=== PATIENT | female | born 1965 | race Caucasian/White ===

== ENCOUNTER 2018-02-20 03:36 | Observation (INO) ==
[2018-02-20] MEDS ORDERED: 0.9 % Sodium Chloride 500 ML IVC ONE (03:57)
[2018-02-20] MEDS ORDERED: Aspirin 325 MG TABLET PO ONE (03:58)
[2018-02-20 04:16] LABS: Basophils % 0.1 %; Eosinophils % 0.1 %; Hematocrit 38.3 % (35.3-44.9); Hemoglobin 12.8 g/dL (11.5-15.4); Immature Granulocytes % 0.5 % (0-4); Lymphocytes % 17.9 %; Mean Corpuscular HGB Conc 33.4 g/dL (31.6-35.5); Mean Corpuscular Hemoglobin 29.3 pg (28.0-33.3); Mean Corpuscular Volume 87.6 fL (83.0-100.0); Mean Platelet Volume 9.9 fL (9.4-12.4); Monocytes # 0.5 K/mcL (0.0-1.3); Monocytes % 4.8 %; Neutrophils # 8.5 K/mcL (1.6-8.9); Platelet Count 198 K/mcL (140-400); Red Blood Count 4.37 M/mcL (3.82-4.97); Segmented Neutrophils % 76.6 %
[2018-02-20] MEDS: Nitroglycerin 0.4 MG TAB.SUBL SL PRN ×2 (04:19→21:28)
[2018-02-20 04:21] LABS: Prothrombin Time 11.8 Seconds (9.4-12.1)
[2018-02-20 04:23] LABS: Activated Partial Thrombo Time 27.9 Seconds (26.0-36.0)
[2018-02-20 04:36] LABS: BUN/Creatinine Ratio 25 (6-26); Blood Urea Nitrogen 15 mg/dL (6-20); Calcium 9.3 mg/dL (8.6-10.3); Carbon Dioxide 23 mEq/L (23-29); Chloride 110 mEq/L (98-107); Glucose 129 mg/dL (70-105); Osmolality,Calculated 283 (280-300); Potassium 4.1 mEq/L (3.5-5.1); Sodium 135 mEq/L (136-145); eGFR For Non-African Americans > 60 (> 60)
[2018-02-20 04:37] LABS: Troponin I < 0.03 ng/mL (< 0.04)
[2018-02-20] MEDS ORDERED: clonazePAM 0.5 MG TABLET PO STA ×2 (04:56→05:17)
--- NOTE | 2018-02-20 04:59 | Emergency Department Note ---
Disposition Clinical Impression: Acute electrocardiogram changes Chest pain Qualifiers: Chest pain type: unspecified Qualified Code(s): R07.9 - Chest pain, unspecified Disposition: Admitted As Inpatient Condition: Good Chest Pain HPI - General Chief Complaint: ED Chest Pain Stated Complaint: chest tightness Time Seen by Provider: 02/20/18 03:42 Source: patient, EMS Limitations: no limitations Vital Signs Reviewed: Yes Nursing Notes Reviewed: Yes - History of Present Illness HPI Narrative: Patient presents today for evaluation of chest pain. Chest pain on the left side describes pressure. Patient states that she has recently been evaluated for lupus as well as thyroid problems. Patient is scheduled to have a stress test tomorrow at [facility]. Patient states that she was concerned about her chest pain and having a heart attack prior to having her evaluation there. She presented here due to its proximity. She has associated nausea. Pain was worse with exertion. Patient will be given aspirin as well as nitroglycerin. High concern for ACS. Patient will likely need admission. Patient states that if possible she would like to go to [facility] for admission. Severity scale (1-10): 5 - Related Data Home Medications Medication Instructions Recorded Confirmed Aspirin [Lo-Dose Aspirin EC] 81 mg PO DAILY 02/20/18 02/20/18 Atorvastatin [Lipitor] 20 mg PO HS 02/20/18 02/20/18 Docusate Sodium [Dulcolax Stool 100 mg PO HS 02/20/18 02/20/18 Softener] Lisinopril [Zestril] 10 mg PO DAILY 02/20/18 02/20/18 Mirtazapine [Remeron] 7.5 - 15 mg PO HS 02/20/18 02/20/18 Promethazine HCl 25 mg PO HS 02/20/18 02/20/18 clonazePAM [Klonopin] 1 mg PO BID MDD .morning and 02/20/18 02/20/18 afternoon clonazePAM [Klonopin] 1 mg PO HS 02/20/18 02/20/18 predniSONE [PredniSONE] 20 mg PO DAILY 02/20/18 02/20/18 Allergies Allergy/AdvReac Type Severity Reaction Status Date / Time antihistamines AdvReac See Uncoded 09/04/17 14:33 Comments Review of Systems: As Per HPI Constitutional: Denies: fever, chills Cardiovascular: Reports: chest pain Respiratory: Denies: cough, dyspnea Gastrointestinal: Reports: nausea Genitourinary: Denies: urgency, dysuria Musculoskeletal: Denies: back pain Neurological: Denies: headache Psychiatric: Reports: anxiety Chest Pain PMH - Past Medical History Medical history: Reports: glaucoma, thyroid disease, other Psychiatric history: Reports: anxiety, PTSD, other - Social History Smoking Status: Current every day smoker Alcohol use: Reports: none Drug use: Reports: marijuana, prescription drug abuse Physical Exam General: Patient mildly anxious Head: Normocephalic Atraumatic Eyes: PERRL, EOMI ENT: Airway patent, no stridor Neck: supple, no meningismus Chest: Lungs clear to auscultation bilateral Cardiac: Regular rate and rhythm, no murmurs, rubs or gallops Abdomen: soft, nontender, nondistended; no guarding, rebound, or tenderness to percussion Skin: No rash, normal skin tone Neuro: Alert and Oriented to person, place, and time; No focal deficit, - General Limitations: no limitations General appearance: alert, in no apparent distress Course Course Narrative: Troponin is negative. Patient has EKG changes. We will discuss with Chel for possible transfer. If unable, patient will be admitted here. - Reevaluation(s) Reevaluation #1: Patient complaining of GI bleeding. States that she has had this and his thought it might be secondary to hemorrhoids. At this time the patient has EKG changes but her troponin is negative. We will hold off on anticoagulation. Stool guaiac has been sent. Not grossly positive. - Consultations Consultation #1: Discussed with Chel. They do not have a Manager [facility]. Patient will require transfer if she ruled in. I have discussed this with the patient and she states that she is agreeable to stay at [facility] for further cardiac evaluation. Consultation #2: Discussed with hospitalist. Patient accepted for admission. Agrees with holding heparin until stool guaiac back and further troponin testing and observation has occurred. Vital Signs Temperature 98.8 F 02/20/18 03:46 Pulse Rate 63 02/20/18 03:46 Respiratory Rate 18 02/20/18 03:46 Blood Pressure 140/80 02/20/18 03:46 O2 Sat by Pulse Oximetry 99 02/20/18 03:46 Temperature 97.9 F 02/20/18 06:47 Pulse Rate 56 02/20/18 06:47 Respiratory Rate 18 02/20/18 06:47 Blood Pressure 155/85 02/20/18 06:47 O2 Sat by Pulse Oximetry 99 02/20/18 06:47 Oxygen Delivery Oxygen Delivery Room Air Chest Pain - Medical Records Medical records reviewed: Yes I reviewed the patient's medical records. - Lab Data Lab results reviewed: Yes I reviewed the patient's lab results. Result diagrams: 02/20/18 04:05 02/20/18 04:05 Lab Results 02/20/18 02/20/18 02/20/18 Range/Units 04:05 04:05 04:05 WBC 11.1 (4.3-11.1) K/mcL RBC 4.37 (3.82-4.97) M/mcL Hgb 12.8 (11.5-15.4) g/dL Hct 38.3 (35.3-44.9) % MCV 87.6 (83.0-100.0) fL MCH 29.3 (28.0-33.3) pg MCHC 33.4 (31.6-35.5) g/dL RDW 13.0 (11.5-14.5) % Plt Count 198 (140-400) K/mcL MPV 9.9 (9.4-12.4) fL Immature Gran % 0.5 (0-4) % Seg Neutrophils % 76.6 % Lymphocytes % 17.9 % Monocytes % 4.8 % Eosinophils % 0.1 % Basophils % 0.1 % Neutrophils # 8.5 (1.6-8.9) K/mcL Lymphocytes # 2.0 (0.6-4.6) K/mcL Monocytes # 0.5 (0.0-1.3) K/mcL Eosinophils # 0.0 (0.0-0.6) K/mcL Basophils # 0.0 (0.0-0.2) K/mcL PT 11.8 (9.4-12.1) Seconds INR 1.0 APTT 27.9 (26.0-36.0) Seconds D-Dimer 387 (0-500) ng/mLFEU Sodium 135 L (136-145) mEq/L Potassium 4.1 (3.5-5.1) mEq/L Chloride 110 H (98-107) mEq/L Carbon Dioxide 23 (23-29) mEq/L BUN 15 (6-20) mg/dL Creatinine 0.59 L (0.60-1.20) mg/dL Est GFR ( Amer) > 60 (> 60) Est GFR (Non-Af Amer) > 60 (> 60) BUN/Creatinine Ratio 25 (6-26) Glucose 129 H (70-105) mg/dL Calculated Osmolality 283 (280-300) Calcium 9.3 (8.6-10.3) mg/dL Troponin I < 0.03 (< 0.04) ng/mL Stool Occult Bld Scrn (Negative) 02/20/18 Range/Units 05:40 WBC (4.3-11.1) K/mcL RBC (3.82-4.97) M/mcL Hgb (11.5-15.4) g/dL Hct (35.3-44.9) % MCV (83.0-100.0) fL MCH (28.0-33.3) pg MCHC (31.6-35.5) g/dL RDW (11.5-14.5) % Plt Count (140-400) K/mcL MPV (9.4-12.4) fL Immature Gran % (0-4) % Seg Neutrophils % % Lymphocytes % % Monocytes % % Eosinophils % % Basophils % % Neutrophils # (1.6-8.9) K/mcL Lymphocytes # (0.6-4.6) K/mcL Monocytes # (0.0-1.3) K/mcL Eosinophils # (0.0-0.6) K/mcL Basophils # (0.0-0.2) K/mcL PT (9.4-12.1) Seconds INR APTT (26.0-36.0) Seconds D-Dimer (0-500) ng/mLFEU Sodium (136-145) mEq/L Potassium (3.5-5.1) mEq/L Chloride (98-107) mEq/L Carbon Dioxide (23-29) mEq/L BUN (6-20) mg/dL Creatinine (0.60-1.20) mg/dL Est GFR ( Amer) (> 60) Est GFR (Non-Af Amer) (> 60) BUN/Creatinine Ratio (6-26) Glucose (70-105) mg/dL Calculated Osmolality (280-300) Calcium (8.6-10.3) mg/dL Troponin I (< 0.04) ng/mL Stool Occult Bld Scrn Negative (Negative) - Radiology Data Radiology results reviewed: Yes I reviewed the patient's radiology results. - EKG Data EKG attestation: Yes I reviewed and interpreted this EKG. EKG results narrative: EKG shows sinus rhythm with heart rate 62. AK 144. QRS 139. QTC 448. Patient has T-wave inversion in V1, V2, V3. No significant elevations. The 78 and T9 were also evaluated and did not show abnormalities.
[2018-02-20] MEDS ORDERED: Nitroglycerin 1 INCH/GM PACKET TP ONE ×2 (05:28→06:30)
[2018-02-20] MEDS ORDERED: Naloxone 0.4 MG/ML INJ IVP PRN (07:45)
[2018-02-20] MEDS ORDERED: *HR* OxyCODONE/APAP 5/325 TABLET PO PRN (08:35)
[2018-02-20] MEDS ORDERED: Acetaminophen 325 MG TABLET PO PRN (08:35)
[2018-02-20] MEDS ORDERED: OXYCODONE Oral CONC 10 MG/0.5 ML ORAL.SYG SL PRN (08:35)
[2018-02-20] MEDS ORDERED: clonazePAM 0.5 MG TABLET PO SCH (09:00)
--- NOTE | 2018-02-20 09:05 | Internal Med History&Physical ---
Date of Encounter: 02/20/18 Time of Encounter: 08:30 Internal Medicine - H&P: HPI Chief complaint: Chest pain Admitted From: Emergency Dept Plans for Post Hospital Care: Home History of present illness: Ms. Bucio is a 52 year old female patient with history of lupus, peripheral arterial disease, intermittent claudication, history of tobacco abuse, hypothyroidism who presented to the ER with complaints of chest pain. She reports that the chest pain has been going on for a while and she was scheduled for an echocardiogram and stress test to be done today. However as her chest pain continued to get worse she decided to come to the ER. She describes the pain as intense pressure on the left side of her chest. It does not get worse with activity but does get worse when she is resting. She has not been on medications for lupus for several months now. She denies any fevers or chills. No palpitations. She does report that she has had GI bleeding in the past. She has not had any colonoscopy recently. Her chest pain did not improve with Aspirin and nitroglycerin that she received in the ER. Past Med Surg Social Fam HX - Past Medical History Attestation: Yes The following information was validated with the patient. Source: patient Medical history: GI bleed, glaucoma, peripheral artery disease, thyroid disease , other (Lupus) Additional medical history: lupus Psychiatric history: anxiety, PTSD, other - Past Surgical History Additional surgical history: 5 D&C - Social History Smoking Status: Current every day smoker Smokeless Tobacco Status: No Alcohol use: none Drug use: marijuana, prescription drug abuse - Family History Father Living Status: Age at : 52 Cause of : CHF Hx Family Cardiac Disorders: Yes Mother Living Status: Age at : 62 Cause of : lung cancer Hx Family Cancer: Yes Grandmother Living Status: Hx Family Cardiac Disorders: Yes Internal Medicine - H&P: Meds Aspirin [Lo-Dose Aspirin EC] 81 mg PO DAILY 02/20/18 [History] Atorvastatin [Lipitor] 20 mg PO HS 02/20/18 [History] Docusate Sodium [Dulcolax Stool Softener] 100 mg PO HS 02/20/18 [History] Lisinopril [Zestril] 10 mg PO DAILY 02/20/18 [History] Mirtazapine [Remeron] 7.5 - 15 mg PO HS 02/20/18 [History] Promethazine HCl 25 mg PO HS 02/20/18 [History] clonazePAM [Klonopin] 1 mg PO BID MDD .morning and afternoon 02/20/18 [History] clonazePAM [Klonopin] 1 mg PO HS 02/20/18 [History] predniSONE [PredniSONE] 20 mg PO DAILY 02/20/18 [History] 3 Allergy/AdvReac Type Severity Reaction Status Date / Time antihistamines AdvReac See Uncoded 09/04/17 14:33 Comments All Systems PM: A 10-system review of systems was performed and is negative for pertinent findings except as documented above in the HPI. - Constitutional Constitutional: no chills, no fever(s), no night sweats - EENT Eyes: no change in vision, no discharge, no pain, no photophobia Ears: no ear discharge, no ear pain, no tinnitus Nose, mouth and throat: no dysphagia, no nasal discharge, no neck pain, no sore throat - Cardiovascular Cardiovascular ROS IM: chest pain, no diaphoresis, no dyspnea, no lightheadedness, no palpitations, no syncope - Respiratory Respiratory: cough, no dyspnea, no wheezing, no excessive phlegm production - Gastrointestinal Gastrointestinal: no abdominal pain, no diarrhea, no hematemesis, no hematochezia, no melena, no nausea, no vomiting - Genitourinary Genitourinary: no change in urinary stream, no dysuria, no flank pain, no hematuria - Musculoskeletal Musculoskeletal ROS IM: no numbness, no tingling - Integumentary Integumentary IM: no rash, no unusual bruising - Neurological Neurological ROS: no confusion, no convulsions, no focal weakness, no numbness, no tingling, no tremor(s) - Hematologic/Lymphatic Hematologic/Lymphatic: no easy bruising - Constitutional Vitals: Temp Pulse Resp BP Pulse Ox 97.9 F 56 18 155/85 99 02/20/18 06:47 02/20/18 06:47 02/20/18 06:47 02/20/18 06:47 02/20/18 06:47 General appearance: Present: cooperative, mild distress, A&O X 3, answers questions appropriately Exam: . - Eye Eye exam: Present: EOMI, PERRL, conjuntiva pink, sclera anicteric - Neck Neck exam general surgery: Present: supple, trachea midline. Absent: lymphadenopathy - Respiratory Respiratory exam: Present: CTAB. Absent: accessory muscle use, rales, rhonchi, wheezes - Cardiovascular Cardiovascular exam: Present: RRR, +S1, +S2. Absent: diastolic murmur, gallop, rubs, systolic murmur Additional comments: Patient has reproducible chest wall tenderness on the left side - GI/Abdominal GI/Abdominal exam: Present: normal bowel sounds, soft, no peritoneal signs. Absent: distended, tenderness - Extremities Exam Extremities exam: Present: warm, radial pulses palpable and symmetrical. Absent : calf tenderness, cyanotic, pedal edema - Neurological Exam Neurological exam: Present: CN II-XII intact, oriented X3, no focal deficits. Absent: facial droop, speech deficit - Skin Skin exam: Present: dry, intact Internal Med - H&P Results - Labs CBC & Chem 7: 02/20/18 04:05 02/20/18 04:05 - EKG Data -: EKG Interpreted by Myself EKG shows normal: sinus rhythm - EKG Data EKG comments: 02/20/18 09:07 T-wave inversions in V1 and V2 and V3 - Impressions Impressions Chest X-Ray 02/20/18 03:57 IMPRESSION: No acute disease. D/ / Hernandez Mcneill MD / Hernandez Mcneill MD Interpreting Provider: Hernandez Mcneill MD - Assessment and plan (1) Chest pain Current Visit: Yes Status: Acute Assessment and plan: Atypical precordial chest pain is reproducible. We will trend troponins. Telemetry monitoring. She does have some abnormal EKG changes. Will schedule for stress test in the morning. Get 2-D echocardiogram. Keep nothing by mouth after midnight. Qualifiers: Chest pain type: precordial pain Qualified Code(s): R07.2 - Precordial pain (2) Lupus (systemic lupus erythematosus) Current Visit: Yes Status: Chronic Assessment and plan: Patient reports history of lupus. Prednisone is listed on her home medications. We will confirm with the patient is taking this medication and resume it. She is not on any other disease modifying agents. Qualifiers: Systemic lupus erythematosus type: other Systemic lupus erythematosus organ involvement: other Qualified Code(s): M32.19 - Other organ or system involvement in systemic lupus erythematosus (3) Peripheral arterial disease Current Visit: Yes Status: Acute Assessment and plan: Continue aspirin and statin. (4) Hypothyroidism Current Visit: Yes Status: Chronic Assessment and plan: Levothyroxin not listed on her med list. Will check TSH. Qualifiers: Hypothyroidism type: other Qualified Code(s): E03.8 - Other specified hypothyroidism (5) PTSD (post-traumatic stress disorder) Current Visit: Yes Status: Acute Assessment and plan: Continue home medications for this condition including Klonopin and Remeron. - Time Spent With Patient Total time spent is greater than 50% in coordination of care (as documented) at patient's floor/unit and/or counseling patient:
[2018-02-20 09:54] LABS: Thyroid Stimulating Hormone 2.408 mcIU/mL (0.340-5.600)
[2018-02-20] MEDS: Aspirin Enteric Coated 81 MG Tablet PO SCH (11:23)
[2018-02-20] MEDS: clonazePAM 0.5 MG TABLET PO SCH (15:25)
--- NOTE | 2018-02-20 16:40 | Electrocardiograph Report ---
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
--- NOTE | 2018-02-20 16:40 | Electrocardiograph Report ---
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
[2018-02-20] MEDS ORDERED: clonazePAM 1 MG TABLET PO SCH (21:00)
[2018-02-20] MEDS ORDERED: Mirtazapine 15 MG TABLET PO SCH (21:00)
[2018-02-21 02:04] LABS: Basophils % 0.3 %; Eosinophils # 0.2 K/mcL (0.0-0.6); Eosinophils % 2.2 %; Hematocrit 36.4 % (35.3-44.9); Hemoglobin 11.7 g/dL (11.5-15.4); Immature Granulocytes % 0.4 % (0-4); Lymphocytes # 5.8 K/mcL (0.6-4.6); Lymphocytes % 55.2 %; Mean Corpuscular HGB Conc 32.1 g/dL (31.6-35.5); Mean Corpuscular Hemoglobin 28.6 pg (28.0-33.3); Mean Platelet Volume 10.1 fL (9.4-12.4); Monocytes # 0.8 K/mcL (0.0-1.3); Monocytes % 7.9 %; Neutrophils # 3.6 K/mcL (1.6-8.9); Platelet Count 217 K/mcL (140-400); Red Blood Count 4.09 M/mcL (3.82-4.97); Red Cell Distribution Width 13.1 % (11.5-14.5)
[2018-02-21 02:23] LABS: BUN/Creatinine Ratio 36 (6-26); Blood Urea Nitrogen 25 mg/dL (6-20); Calcium 8.6 mg/dL (8.6-10.3); Carbon Dioxide 31 mEq/L (23-29); Chloride 104 mEq/L (98-107); Cholesterol 122 mg/dL (< 200); Glucose 91 mg/dL (70-105); HDL Cholesterol 41 mg/dL (40-59); LDL Cholesterol,Calculated 62 mg/dL (0-99); Osmolality,Calculated 294 (280-300); Potassium 4.2 mEq/L (3.5-5.1); Sodium 140 mEq/L (136-145); Triglycerides 93 mg/dL (< 150); eGFR For Non-African Americans > 60 (> 60)
[2018-02-21] MEDS ORDERED: Regadenoson 0.4 MG/5 ML SYRINGE IVP ONE (06:08)
[2018-02-21 10:34] VITALS: BP 120/86
[2018-02-21] MEDS: Aspirin Enteric Coated 81 MG Tablet PO SCH (10:53)
[2018-02-21] MEDS: clonazePAM 0.5 MG TABLET PO SCH (10:53)
[2018-02-21 10:55] LABS: Estimated Average Glucose 114 mg/dl; Hemoglobin A1C 5.6 %
--- NOTE | 2018-02-21 11:25 | Discharge Summary ---
- NOTES TO OUTPATIENT PROVIDER Notes to Outpatient Provider: Recommend routine hospital follow-up. Lisinopril was decreased to 5 mg due to soft/borderline BP. Recommend follow-up for BP recheck within one week Orders not resulted at time of discharge: Pending orders 02/21/18 05:52 NM phillip perf SPECT multi [NM] Routine Date of Encounter: 02/21/18 Time of Encounter: 11:23 - Discharge Diagnosis (1) Chest pain Priority: Primary Status: Acute Qualifiers: Chest pain type: precordial pain Qualified Code(s): R07.2 - Precordial pain (2) Lupus (systemic lupus erythematosus) Priority: Secondary Status: Chronic Qualifiers: Systemic lupus erythematosus type: other Systemic lupus erythematosus organ involvement: other Qualified Code(s): M32.19 - Other organ or system involvement in systemic lupus erythematosus (3) Peripheral arterial disease Priority: Secondary Status: Chronic (4) Hypothyroidism Priority: Secondary Status: Chronic Qualifiers: Hypothyroidism type: other Qualified Code(s): E03.8 - Other specified hypothyroidism (5) PTSD (post-traumatic stress disorder) Priority: Secondary Status: Chronic Hospital course: Ms. Bucio is a 52 year old female patient with history of lupus, peripheral arterial disease, intermittent claudication, history of tobacco abuse, and hypothyroidism presented to [facility] on 02/20/2018 with complaints of chest pain. She is placed in observation status for ACS rule out. ACS was ruled out with negative serial troponins. EKG with right bundle kyler block, no acute ST changes. Baseline EKG unknown. Echocardiogram pending at time of discharge. Suspect chest pain musculoskeletal as was reproducible on exam and also suspect a component of anxiety contributing to chest pain as she is quite anxious on exam. On day of discharge she was at baseline and requested to be discharged home. She did have some mild left chest wall tenderness which was reproducible on exam. Discussed with patient at length and patient thinks chest pain is secondary to her lupus and RA and possibly anxiety as well. She reported having a GI bleed and is scheduled for an outpatient colonoscopy. Hemoglobin stable this hospitalization and no active bleeding. Her BP was soft/borderline this hospitalization. Patient reported recently being started on lisinopril. Dose was decreased to 5 mg and patient was to advised to monitor BP and record to follow-up with her PCP. She was advised to return to the ER if chest pain and/or SOB recurs. She verbalizes understanding. She was discharged home in stable condition with outpatient follow-up. Discharge discussed with: patient (Seen and examined at bedside. Patient is new to me, information obtained from chart review and patient report. Says she feels better would like to go home today if possible. She does have some mild left chest wall tenderness which is reproducible on exam. She appears very anxious and I suspect her chest pain secondary to her lupus/RA combined with severe anxiety. Latoya return to the ER if chest pain or SOB recurs.) - Time Spent with Patient Total time spent providing and/or coordinating discharge services: - Discharge Medications Prescriptions: Lisinopril [Zestril] 5 mg PO DAILY #30 tablet Home Medications: Aspirin [Lo-Dose Aspirin EC] 81 mg PO DAILY 02/20/18 [History] Atorvastatin [Lipitor] 20 mg PO HS 02/20/18 [History] Docusate Sodium [Dulcolax Stool Softener] 100 mg PO HS 02/20/18 [History] Meloxicam 15 mg PO DAILY 02/20/18 [History] Mirtazapine [Remeron] 7.5 - 15 mg PO HS 02/20/18 [History] Promethazine HCl 25 mg PO HS 02/20/18 [History] clonazePAM [Klonopin] 0.5 mg PO BID 02/20/18 [History] clonazePAM [Klonopin] 1 mg PO HS 02/20/18 [History] predniSONE [PredniSONE] 20 mg PO DAILY 02/20/18 [History] Lisinopril [Zestril] 5 mg PO DAILY #30 tablet 02/21/18 [Rx] Allergies/Adverse Reactions: 3 Allergy/AdvReac Type Severity Reaction Status Date / Time antihistamines AdvReac See Uncoded 09/04/17 14:33 Comments Date of admission: 02/20/18 06:24 Primary care physician: Iban Patel CNP Consults: 02/20/18 07:06 Consult to Nutrition [CONS] Routine Comment: Consulting Provider: NUTRITION Reason for Dietary Consult: MST Score Discharging clinician: Macey Castro Anticipated date of discharge: 02/21/18 - Constitutional Vitals: Temp Pulse Resp BP Pulse Ox 97.5 F L 77 15 120/86 97 02/21/18 07:25 02/21/18 10:34 02/21/18 07:25 02/21/18 10:34 02/21/18 07:25 General appearance: Present: cachectic, cooperative, A&O X 3, no acute distress , answers questions appropriately Exam: see below - Head Head exam: Present: atraumatic, normocephalic - Eye Eye exam: Present: PERRL, conjuntiva pink, sclera anicteric Pupils: Present: PERRL - Neck Neck exam general surgery: Present: supple, trachea midline. Absent: lymphadenopathy - Respiratory Respiratory exam: Present: CTAB. Absent: accessory muscle use, rales, rhonchi, wheezes - Cardiovascular Cardiovascular exam: Present: RRR, +S1, +S2. Absent: diastolic murmur, gallop, rubs, systolic murmur - GI/Abdominal GI/Abdominal exam: Present: normal bowel sounds, soft, no peritoneal signs. Absent: distended, tenderness - Extremities Exam Extremities exam: Present: warm, radial pulses palpable and symmetrical. Absent : calf tenderness, cyanotic, pedal edema - Neurological Exam Neurological exam: Present: CN II-XII intact, oriented X3, no focal deficits. Absent: pronater drift, facial droop, speech deficit - Psychiatric Psychiatric exam: Present: anxious - Skin Skin exam: Present: dry, intact - Patient Status Disposition: Home, Self-Care Condition: Good Functional capacity at discharge: independent ambulation Overall status at discharge: patient is back to baseline - Discharge Instructions Instructions: Chest Pain (DC), How to Stop Smoking (DC), Cigarette Smoking and Your Health (GEN), Anxiety (DC) Follow Up With: Reji Coleman DO [Partnered Physician] - 03/18/18 10:00 am Iban Patel CNP [Primary Care Provider] - 02/27/18 1:15 pm - Diet and Activity Activity: increase activity as tolerated Diet: advance to your usual diet
--- NOTE | 2018-02-22 18:39 | Electrocardiograph Report ---
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
== END 2018-02-21 13:30 | disposition home or self-care (01) ==
LOC: EMEROOARM 03:36 → 3NENU 03:36
PROVIDERS: ADMIT Pediatrics; ATTEND Pediatrics